=== PATIENT | female | born 1975 | race Caucasian/White ===

== ENCOUNTER → 2021-10-03 11:01 | Outpatient (BNVA) | payer MEDICAID, SELFPAY | PROVIDERS: Family Provider Nurse Practitioner; Visit Provider Internal Medicine | DX: R76.8 Other specified abnormal immunological findings in serum (principal) | CPT/HCPCS: 36415; 72202; 73120; 82306; 82533; 82550; 82607; 84100; 84182; 84425; 84439; 84443; 84480; 84481; 85651; 86140; 86160; 86162; 86200; 86235; 86255; 86376; 86431 ==

== ENCOUNTER → 2023-01-09 13:41 | Outpatient (BNVA) | payer MEDICAID, SELFPAY | PROVIDERS: Family Provider Nurse Practitioner; Visit Provider Internal Medicine | DX: R07.9 Chest pain, unspecified (principal) | CPT/HCPCS: 93005 ==

== ENCOUNTER 2023-08-26 14:58 | Outpatient (CLI) | payer MEDICAID, SELFPAY ==
--- NOTE | 2023-08-26 15:15 | USCV_ITS ---
Nikki Cat Age: 48 Gender: F : 1975 Exam Date: 08/26/2023 15:40 Ordering Phys: Miriam Rivas [employer] Technologist: SERGEI Exam Location: [facility] Indication: palpitations BP: 110 / 70 HR: 152 Rhythm: Sinus Technical Quality: Adequate MEASUREMENTS (Male / Female) Normal Values 2D ECHO LV Diastolic Diameter PLAX 4.0 cm 4.2 - 5.9 / 3.9 - 5.3 cm IVS Diastolic Thickness 1.1 cm 0.6 - 1.0 / 0.6 - 0.9 cm IVS Systolic Thickness 1.1 cm LVPW Diastolic Thickness 1.3 cm 0.6 - 1.0 / 0.6 - 0.9 cm LVPW Systolic Thickness 1.8 cm LVOT Diameter 2.1 cm LV Ejection Fraction 2D Teich 52.5 % LV Ejection Fraction MOD 2C 63.3 % LV Ejection Fraction 2C AL 63.2 % LA Diameter 2.6 cm RA Systolic Volume 4C AL 25.5 ml RA Systolic Volume 4C MOD 25.3 ml Aorta at Sinotubular Diameter 2.9 cm IVC Diameter 1.4 cm M-MODE LA Ao Ratio MM 1.2 AV Cusp Separation MM 1.8 cm DOPPLER AV Peak Velocity 169.0 cm/s LVOT Peak Velocity 115.0 cm/s AV Area Cont Eq vti 2.5 cm squared AV Area Cont Eq pk 2.3 cm squared MV Peak Velocity 117.0 cm/s MV Area PHT 4.6 cm squared Mitral E to A Ratio 1.1 TV Peak Velocity 188.8 cm/s TR Peak Velocity 218.5 cm/s TR Peak Gradient 19.1 mmHg TR Mean Velocity 153.0 cm/s TR Mean Gradient 10.8 mmHg TR Velocity Time Integral 44.2 cm Right Atrial Pressure 3.0 mmHg Pulmonary Artery Systolic Pressu 22.1 mmHg PV Peak Velocity 106.5 cm/s RV Ejection Time 0.3 s FINDINGS Left Ventricle Left ventricle is normal in size. LV systolic function is normal with EF of 55 to 60%. No regional wall motion abnormalities are seen. Right Ventricle Normal in size and function Right Atrium Normal in size Left Atrium Normal in size Mitral Valve Structurally normal mitral valve. Trace mitral regurgitation. Aortic Valve Structurally normal aortic valve. No significant stenosis or regurgitation. Tricuspid Valve Mild tricuspid regurgitation. Pulmonary artery systolic pressure is normal. Pulmonic Valve Not well visualized Pericardium Normal Aorta Normal in size IVC Appears to be normal CONCLUSIONS LV systolic function is normal with EF of 55 to 60%. Trace mitral regurgitation. Mild tricuspid regurgitation. No comparison studies are available. David Hernandez MD (Electronically Signed) Final Date: 08 September 2023 11:40 S
== END 2023-08-26 14:59 | disposition home or self-care (01) ==
LOC: RAD 14:58
PROVIDERS: Family Provider Nurse Practitioner; Visit Provider Nurse Practitioner Family
DX: I07.1 Rheumatic tricuspid insufficiency (principal)
CPT/HCPCS: 93306

== ENCOUNTER → 2025-05-18 10:05 | Outpatient (BNVA) | payer BC, MEDICAID, SELFPAY | PROVIDERS: Family Provider Nurse Practitioner; Referring Provider Nurse Practitioner; Visit Provider Specialist | DX: R53.1 Weakness (principal); G62.9 Polyneuropathy, unspecified | CPT/HCPCS: 82085; 82550; 85651 ==